=== PATIENT | male | born 1980 | race Caucasian/White ===

== ENCOUNTER 2016-05-26 18:42 | Emergency (ER) | payer BC ==
[~2016-05-26 18:42] MED LIST: PT DENIES HOME MEDS
== END 2016-05-26 20:48 | disposition home or self-care (01) ==
LOC: ER 18:42
DX: M54.6 Pain in thoracic spine (principal); F41.9 Anxiety disorder, unspecified; Z88.0 Allergy status to penicillin
CPT/HCPCS: 99283